=== PATIENT | female | born 1930 | race Asian ===

== ENCOUNTER 2017-06-13 15:44 | Emergency (ER) | payer MEDICARE, OTHER ==
[~2017-06-13] VITALS: Ht 149.9 cm; Wt 40.0 kg
--- NOTE | 2017-06-13 16:00 | NUR ---
BIB [facility] DT POSSIBLE ALLERGIC REACTION FROM [facility]. PER [facility], PATIENT STARTED HAVING REDNESS AND ITCHINESS ALL OVER HER BODY SP EATING [facility] AROUND 12PM TODAY. NO SOB NOTED. VSS
[2017-06-13] MEDS ORDERED: diphenhydrAMINE HCL 50 MG/ML VIAL ONE (16:25)
[2017-06-13] MEDS ORDERED: DEXAMETHASONE SOD PHOSPHATE 10 MG/ML VIAL ONE (16:25)
[2017-06-13] MEDS ORDERED: FAMOTIDINE/PF INJ 20 MG/2 ML VIAL IV ONE ×2 (16:25→16:30)
[2017-06-13] MEDS ORDERED: diphenhydrAMINE HCL 50 MG/ML VIAL IV ONE (16:30)
[2017-06-13] MEDS ORDERED: IV NS 0.9% 1,000 ML BAG IV ONE (16:30)
[2017-06-13] MEDS ORDERED: DEXAMETHASONE SOD PHOSPHATE 10 MG/ML VIAL IV ONE (16:30)
[2017-06-13 18:35] VITALS: BP 132/70
--- NOTE | 2017-06-13 18:35 | NUR ---
Patient discharged to home in stable condition. Written and verbal after care instructions given. Patient verbalizes understanding of instruction.
== END 2017-06-13 18:36 | disposition home or self-care (01) ==
LOC: ER 15:46
DX: L29.9 Pruritus, unspecified (principal); T78.1XXA Other adverse food reactions, not elsewhere classified, initial encounter; Y92.89 Other specified places as the place of occurrence of the external cause
CPT/HCPCS: A4606; J1100; J1200; J3490; J7040; Z7610